=== PATIENT | female | born 2000 | race Caucasian/White ===

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

== ENCOUNTER 2019-07-11 07:31 | Inpatient (IN) ==
[2019-07-11] MEDS ORDERED: OXYTOCIN 30 UNITS/500 ML BAG IV PRN ×2 (08:37→08:41)
[2019-07-11] MEDS ORDERED: ALBUTEROL HFA 8 GM INHALER INH PRN (08:40)
[2019-07-11] MEDS: LACTATED RINGER'S 1,000 ML IV PRN ×4 (08:57→23:51)
[2019-07-11 08:58] LABS: Hematocrit (blood only) 34.7 % (37-47); Hemoglobin 11.3 g/dL (12.0-16.0); Mean Corpuscular Hemoglobin 27.6 pg (25-34); Mean Corpuscular Volume 84.6 fL (80-100); Mean Platelet Volume 10.9 fL (7.4-10.4); Platelet Count 178 K/uL (130-400); RDW Coefficient of Variation 14.7 % (11.5-14.5); RDW Standard Deviation 45.6 fL (36.4-46.3); White Blood Count 12.06 K/uL (4.8-10.8)
[2019-07-11 09:04] LABS: Mean Corpuscular Hgb Conc 32.6 g/dL (32-36)
--- NOTE | 2019-07-11 14:26 | History & Physical Report ---
Date of Service July 11, 2019 Assessment & Plan (1) Proteinuria affecting : (2) Encounter for supervision in primigravida, antepartum: 18yo at 4.5 weeks GA. Elective IOL. 1. Fetus: Cat 1 2. Labor: Will start induction with oxytocin and will AROM when able 3. Vitals: WNL 4. GBS negative History of Present Illness Primary Care Provider: Miley Rodriguez MD 18yo at 40.5 weeks GA. Presents for elective IOL. complicated by Hypothyroidism, and gestational proteinuria. Denies regular ctx, VB, or LOF. Good FM. Blood Type & RH A+ Antibody Screen neg HCT/HGB 38.3/12.7 Platelets 193 Chlamydia Detected A Gonorrhea Not detected Rubella immune RPR Non reactive Urine Culture/Screen no growth HBsAg neg HIV neg MCV 84.7 Low Risk Panorama 8-20 Week OB Labs 01/15/19 Diabetes Screen (1hr) 109 GBS negative. Allergies Allergy/AdvReac Type Severity Reaction Status Date / Time No Known Allergies Allergy Verified 07/11/19 08:33 Home Medications Home Medications Medication Instructions Recorded Confirmed Type albuterol sulfate 90 mcg/actuation See Rx Instructions INH .COMPLEX 11/16/18 07/11/19 History aerosol inhaler PRN epinephrine 0.3 mg/0.3 mL 0.3 mg IM .COMPLEX PRN 11/16/18 07/11/19 History injection, auto-injector prenat.vits,miryam,[id number] 1 tab PO DAILY 11/24/18 07/11/19 History Patient History Social History Preferred Language: Chinese Communication Ability: Effective Visual Impairment: No Limitations Hearing Ability: Normal Beliefs That Will Affect Care: None marital status: Single marital status details: ANTONIA Perez (25) [phone] Current Living Situation: Significant Other Current Living Situation Comment: Lives with parents current occupational status: employed 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 @ [employer] Other Information That Helps Us Care for You: No Feels Safe at Home: Yes Safety Concerns: Feels Safe At This Time Smoking Status: Former smoker Age Started Using Tobacco: 16 ; Age Quit Using Tobacco: 18 ; packs per day: 1 ; Number of Years Since Quit: 0 ; Second Hand Exposure: No ; Hx Alcohol Use: No Hx Substance Use: No Dental Care, Regularly: Yes Physical Activity Frequency: Daily Seatbelt Use: always Sunscreen Use: Yes Physical Exam Gastrointestinal (Abdomen): Inspection/Auscultation: abdomen normal to inspection; abdomen not distended Percussion/Palpation: abdomen soft; abdomen nontender, no guarding and abdomen not rigid Psychiatric: A+Ox3, euthymic affect Genitourinary: normal external appearance Manual OB Exam: + cervical dilation 2 cm, + cervical effacement 70% and + station -2 OB Exam Monitor Tracing: + external FHT monitor used, + external uterine monitor used, + category I and + normal FHT variability; no early decelerations present, no late decelerations present and no variable decelerations Results & Data Vital Signs (Past 12 Hours) Vital Signs Temp Pulse Resp BP 07/11/19 12:17 81 16 109/51 L 07/11/19 11:19 36.9 C 91 H 16 121/71 07/11/19 09:55 83 16 130/60 07/11/19 07:40 108 H 135/77 07/11/19 07:39 36.8 C 108 H 20 135/77 Coding Level of Care Code None Diagnoses Proteinuria affecting O12.10 Encounter for supervision in primigravida, antepartum Z34.00
--- NOTE | 2019-07-11 15:21 | Labor Progress Brief Note ---
Date of Service July 11, 2019 Subjective Reason For Note: Routine Evaluation Assessment & Plan (1) Proteinuria affecting : (2) Encounter for supervision in primigravida, antepartum: 18yo at 4.5 weeks GA. Elective IOL. 1. Fetus: Cat 1 2. Labor: Oxytocin, s/p AROM for clear 3. Vitals: WNL 4. GBS negative Physical Exam Genitourinary: Manual OB Exam: + cervical dilation 2 cm, + cervical effacement 70%, + station -2 and + amniotic fluid clear OB Exam Monitor Tracing: + external FHT monitor used, + external uterine monitor used, + category I and + normal FHT variability; no early decelerations present, no late decelerations present and no variable decelerations Results & Data Vital Signs (Past 12 Hours) Vital Signs Temp Pulse Resp BP 07/11/19 14:56 36.8 C 85 20 129/68 07/11/19 14:01 86 16 126/70 07/11/19 12:17 81 16 109/51 L 07/11/19 11:19 36.9 C 91 H 16 121/71 07/11/19 09:55 83 16 130/60 07/11/19 07:40 108 H 135/77 07/11/19 07:39 36.8 C 108 H 20 135/77 Coding Level of Care Code None Diagnoses Proteinuria affecting O12.10 Encounter for supervision in primigravida, antepartum Z34.00
[2019-07-11] MEDS ORDERED: BUTORPHANOL TARTRATE 1 MG/ML VIAL IV PRN (16:51)
[2019-07-11] MEDS ORDERED: BUTORPHANOL TARTRATE 1 MG/ML VIAL ONE (16:55)
[2019-07-11] MEDS ORDERED: ePHEDrine sulfate 50 MG/ML AMP ONE (17:45)
[2019-07-11] MEDS ORDERED: BUPIVACAINE 0.25% 30 ML VIAL ONE (17:45)
[2019-07-11] MEDS ORDERED: fentaNYL citrate 100 MCG/2 ML VIAL ONE (17:46)
[2019-07-11] MEDS ORDERED: fentaNYL 2MCG/ML ROPIV 1.25MG/ML 100 ML BAG EPI ONE (17:46)
--- NOTE | 2019-07-11 18:01 | Anesthesiology Consultation ---
Date of Service July 11, 2019 Assessment & Plan Chart Review Chart Review: Acceptable Risk for Labor Epidural Consults Requested none ASA ASA2 Proposed Anesthesia Anesthesia Type: Labor Epidural Risk / Benefits Reviewed With: PT / POA / Parent / Guardian, Accepts Plan and Informed Consent Obtained History Height/Weight Height: 5 ft 4 in Weight: 94.801 kg Allergies Allergy/AdvReac Type Severity Reaction Status Date / Time No Known Allergies Allergy Verified 07/11/19 08:33 Medications Home Medications Medication Instructions Recorded Confirmed Last Taken albuterol sulfate 90 mcg/actuation See Rx Instructions INH .COMPLEX 11/16/18 07/11/19 Unknown aerosol inhaler PRN epinephrine 0.3 mg/0.3 mL 0.3 mg IM .COMPLEX PRN 11/16/18 07/11/19 Unknown injection, auto-injector prenat.vits,miryam,[id number] 1 tab PO DAILY 11/24/18 07/11/19 07/11/19 06:00 Active Medications Generic Name Dose Route Start Last Admin Trade Name Freq PRN Reason Stop Dose Admin Lactated Ringer's 1,000 mls @ 125 mls/hr 07/11/19 08:37 07/11/19 17:57 Lr IV 07/13/19 08:36 999 mls/hr .Q8H PRN Infusion L&D Protocol Protocol Oxytocin 30 units in 500 mls @ 9 mls/hr 07/11/19 08:41 07/11/19 17:13 Pitocin IV 07/13/19 08:40 0.54 units/hr .Q24H PRN 9 mls/hr Labor Induction/Augmentation Titration Protocol 0.54 UNITS/HR NPO Date Last Intake of Fluids: 07/11/19 Time Last Intake of Fluids: 17:00 Date Last Intake of Solids: 07/11/19 Time Last Intake of Solids: 06:00 Past Medical History Medical History screening for malformation using ultrasonics Fall (on) (from) other stairs and steps, initial encounter Graves disease (Resolved) Intrinsic asthma (Chronic) Migraine No leakage of amniotic fluid into vagina Otitis media (Inactive) with 32 completed weeks gestation Varicella vaccine Vitiligo (Chronic) Exercise / Class Metabolic Activity II 4-5 Yardwork/Stairs/Walk up hill Past Family History Family History Father Allergic rhinitis Mother Allergic rhinitis Asthma FHx: kidney cancer Hypertension Multiple gestation Premature labor Grandmother (Paternal) Breast cancer Grandmother Breast cancer Sister Diabetes Hypercholesteremia Other ADHD (attention deficit hyperactivity disorder) Denies family history of Ovarian cancer Prostate cancer Myocardial infarction Colorectal cancer Past Surgical History Surgical History S/P tonsillectomy and adenoidectomy S/P wisdom tooth extraction Past Anesthesia History No Hx of Anesthesia Complications and No Family Hx of Anesthesia Complications History of PONV No Hx of PONV and No Hx of Motion Sickness Social History Smoking Status: Former smoker Hx Alcohol Use: No Hx Substance Use: No substance use type: does not use Physical Exam Vital Signs Last Vital Signs Temp 36.8 C 07/11/19 17:02 Pulse 89 07/11/19 17:56 Resp 20 07/11/19 17:02 BP 120/66 07/11/19 17:03 Pulse Ox 100 07/11/19 17:56 ENMT Mouth: no TMJ abnormality Thyromental Distance: > or= 3.5 Finger Breadths Mallampati Class: II Neck normal visual inspection and trachea midline; neck extension not limited Respiratory normal respiratory effort Auscultation: lungs clear to auscultation bilaterally Cardiovascular Rate/Rhythm: regular rate and regular rhythm Heart Sounds: no murmur Musculoskeletal Spine: normal cervical ROM Extremities: full ROM of extremities Neurologic moves all extremities Psychiatric Orientation: alert and oriented x 3 Testing Laboratory Results 07/11/19 08:48
[2019-07-11] MEDS ORDERED: ONDANSETRON INJ 2 MG/ML 2 ML VIAL IV PRN (18:19)
[2019-07-11] MEDS ORDERED: PROMETHAZINE HCL 25 MG in SODIUM CHLORIDE 0.9% 50 ML IV PRN (18:19)
[2019-07-11] MEDS ORDERED: fentaNYL 2MCG/ML ROPIV 1.25MG/ML 100 ML BAG EPI PRN (18:19)
[2019-07-11] MEDS ORDERED: NALOXONE HCL 0.4 MG/1 ML VIAL/CARP IV PRN (18:19)
[2019-07-11] MEDS ORDERED: NALBUPHINE HCL INJ 10 MG/ML AMP IV PRN (18:19)
[2019-07-11] MEDS ORDERED: METOCLOPRAMIDE HCL 20 MG in SODIUM CHLORIDE 0.9% 50 ML IV PRN (18:19)
[2019-07-11] MEDS ORDERED: DiphenhydrAMINE HCL 50 MG/ML VIAL IV PRN (18:19)
[2019-07-11] MEDS ORDERED: NALOXONE HCL 1 MG in SODIUM CHLORIDE 0.9% 1000ML 1,000 ML IV PRN (18:19)
[2019-07-11] MEDS ORDERED: ePHEDrine sulfate 50 MG/ML AMP IV PRN (18:19)
--- NOTE | 2019-07-11 20:41 | Labor Progress Brief Note ---
Date of Service July 11, 2019 Subjective Reason For Note: Routine Evaluation Assessment & Plan (1) Proteinuria affecting : (2) Encounter for supervision in primigravida, antepartum: 18yo at 4.5 weeks GA. Elective IOL. 1. Fetus: Cat 1 2. Labor: Oxytocin, s/p AROM for clear, IUPC placed 3. Vitals: WNL 4. GBS negative Physical Exam Genitourinary: OB Exam Abdomen: + vertex Manual OB Exam: + cervical dilation (2-3), + cervical effacement 80%, + station -2 and + amniotic fluid clear OB Exam Monitor Tracing: + external FHT monitor used, + external uterine monitor used, + category I and + normal FHT variability; no early decelerations present, no late decelerations present and no variable decelerations Results & Data Vital Signs (Past 12 Hours) Vital Signs Temp Pulse Resp BP Pulse Ox 07/11/19 20:36 95 H 97 07/11/19 20:31 92 H 128/68 96 07/11/19 20:26 86 97 07/11/19 20:21 90 96 07/11/19 20:16 89 118/56 L 97 07/11/19 20:11 97 H 96 07/11/19 20:06 88 98 07/11/19 20:01 93 H 125/60 97 07/11/19 19:56 93 H 97 07/11/19 19:51 91 H 96 07/11/19 19:46 91 H 130/56 L 99 07/11/19 19:41 95 H 99 07/11/19 19:36 85 97 07/11/19 19:31 101 H 135/63 98 07/11/19 19:26 95 H 97 07/11/19 19:21 90 97 07/11/19 19:16 89 127/71 97 07/11/19 19:11 83 96 07/11/19 19:06 91 H 99 07/11/19 19:05 36.9 C 18 07/11/19 19:02 91 H 119/84 07/11/19 19:01 85 98 07/11/19 18:56 94 H 97 07/11/19 18:51 92 H 98 07/11/19 18:46 89 98 07/11/19 18:44 94 H 132/85 07/11/19 18:41 106 H 99 07/11/19 18:39 96 H 141/66 H 07/11/19 18:36 89 100 07/11/19 18:34 89 133/68 07/11/19 18:31 88 98 07/11/19 18:28 80 135/70 07/11/19 18:26 78 133/72 100 07/11/19 18:24 74 126/72 07/11/19 18:22 95 H 114/58 L 07/11/19 18:21 81 98 07/11/19 18:20 99 H 111/55 L 07/11/19 18:18 83 108/55 L 07/11/19 18:17 91 H 103/56 L 07/11/19 18:16 93 H 97 07/11/19 18:11 105 H 98 07/11/19 18:06 106 H 100 07/11/19 18:04 102 H 94 07/11/19 18:01 94 H 98 07/11/19 17:56 89 100 07/11/19 17:03 88 120/66 07/11/19 17:02 36.8 C 20 07/11/19 15:57 82 117/75 07/11/19 14:56 36.8 C 85 20 129/68 07/11/19 14:01 86 16 126/70 07/11/19 12:17 81 16 109/51 L 07/11/19 11:19 36.9 C 91 H 16 121/71 07/11/19 09:55 83 16 130/60 Coding Level of Care Code None Diagnoses Proteinuria affecting O12.10 Encounter for supervision in primigravida, antepartum Z34.00
--- NOTE | 2019-07-11 22:18 | Labor Progress Brief Note ---
Date of Service July 11, 2019 Subjective Oxytocin discontinued for prolonged deceleration and several late after i ncreasing oxytocin. IUPC in place and initially having adequate contractions which became inadequate prior to increasing oxytocin. Assessment & Plan (1) Proteinuria affecting : (2) Encounter for supervision in primigravida, antepartum: 18yo at 4.5 weeks GA. Elective IOL. 1. Fetus: Cat 1 2. Labor: Oxytocin, s/p AROM for clear, IUPC in place 3. Vitals: WNL 4. GBS negative Physical Exam Genitourinary: Manual OB Exam: + cervical dilation (2.5), + cervical effacement 80% and + station -2 OB Exam Monitor Tracing: + external FHT monitor used, + intra-uterine pressure catheter used and + category II Results & Data Vital Signs (Past 12 Hours) Vital Signs Temp Pulse Resp BP Pulse Ox 07/11/19 22:11 81 97 07/11/19 22:06 77 97 07/11/19 22:01 96 H 117/59 L 97 07/11/19 21:56 86 97 07/11/19 21:51 84 98 07/11/19 21:46 88 127/58 L 96 07/11/19 21:41 103 H 99 07/11/19 21:37 37.0 C 07/11/19 21:36 96 H 96 07/11/19 21:31 97 H 99 07/11/19 21:30 92 H 116/59 L 07/11/19 21:26 79 96 07/11/19 21:21 88 96 07/11/19 21:17 85 111/59 L 07/11/19 21:16 86 96 07/11/19 21:11 82 97 07/11/19 21:06 96 H 96 07/11/19 21:01 95 H 127/60 96 07/11/19 20:56 91 H 96 07/11/19 20:51 94 H 96 07/11/19 20:46 78 133/60 98 07/11/19 20:41 86 96 07/11/19 20:36 95 H 97 07/11/19 20:31 92 H 128/68 96 07/11/19 20:26 86 97 07/11/19 20:21 90 96 07/11/19 20:16 89 118/56 L 97 07/11/19 20:11 97 H 96 07/11/19 20:06 88 98 07/11/19 20:01 93 H 125/60 97 07/11/19 19:56 93 H 97 07/11/19 19:51 91 H 96 07/11/19 19:46 91 H 130/56 L 99 07/11/19 19:41 95 H 99 07/11/19 19:36 85 97 07/11/19 19:31 101 H 135/63 98 07/11/19 19:26 95 H 97 07/11/19 19:21 90 97 07/11/19 19:16 89 127/71 97 07/11/19 19:11 83 96 07/11/19 19:06 91 H 99 07/11/19 19:05 36.9 C 18 07/11/19 19:02 91 H 119/84 07/11/19 19:01 85 98 07/11/19 18:56 94 H 97 07/11/19 18:51 92 H 98 07/11/19 18:46 89 98 07/11/19 18:44 94 H 132/85 07/11/19 18:41 106 H 99 07/11/19 18:39 96 H 141/66 H 07/11/19 18:36 89 100 07/11/19 18:34 89 133/68 07/11/19 18:31 88 98 07/11/19 18:28 80 135/70 07/11/19 18:26 78 133/72 100 07/11/19 18:24 74 126/72 07/11/19 18:22 95 H 114/58 L 07/11/19 18:21 81 98 07/11/19 18:20 99 H 111/55 L 07/11/19 18:18 83 108/55 L 07/11/19 18:17 91 H 103/56 L 07/11/19 18:16 93 H 97 07/11/19 18:11 105 H 98 07/11/19 18:06 106 H 100 07/11/19 18:04 102 H 94 07/11/19 18:01 94 H 98 07/11/19 17:56 89 100 07/11/19 17:03 88 120/66 07/11/19 17:02 36.8 C 20 07/11/19 15:57 82 117/75 07/11/19 14:56 36.8 C 85 20 129/68 07/11/19 14:01 86 16 126/70 07/11/19 12:17 81 16 109/51 L 07/11/19 11:19 36.9 C 91 H 16 121/71 Coding Level of Care Code None Diagnoses Proteinuria affecting O12.10 Encounter for supervision in primigravida, antepartum Z34.00
[2019-07-12] MEDS: ACETAMINOPHEN 500 MG TAB PO PRN ×3 (00:03→18:32)
--- NOTE | 2019-07-12 00:10 | Labor Progress Brief Note ---
Date of Service July 12, 2019 Subjective Reason For Note: Routine Evaluation Assessment & Plan (1) Proteinuria affecting : (2) Encounter for supervision in primigravida, antepartum: 18yo at 4.5 weeks GA. Elective IOL. 1. Fetus: Cat 1 2. Labor: Progressing, Oxytocin, s/p AROM for clear, IUPC in place 3. Vitals: WNL 4. GBS negative Physical Exam Genitourinary: OB Exam Abdomen: + vertex Manual OB Exam: + cervical dilation 7 cm, + cervical effacement 90%, + station -1 and + amniotic fluid clear OB Exam Monitor Tracing: + external FHT monitor used, + external uterine monitor used, + category I and + normal FHT variability; no early decelerations present, no late decelerations present and no variable decelerations Results & Data Vital Signs (Past 12 Hours) Vital Signs Temp Pulse Resp BP Pulse Ox 07/12/19 00:06 102 H 98 07/12/19 00:01 96 H 99 07/12/19 00:00 105 H 130/60 07/11/19 23:56 109 H 100 07/11/19 23:51 101 H 99 07/11/19 23:47 94 H 91 07/11/19 23:46 104 H 100 07/11/19 23:45 97 H 134/68 07/11/19 23:41 105 H 100 07/11/19 23:36 103 H 100 07/11/19 23:31 102 H 151/80 H 99 07/11/19 23:28 100 H 89 L 07/11/19 23:26 102 H 99 07/11/19 23:21 95 H 99 07/11/19 23:16 90 118/55 L 98 07/11/19 23:11 92 H 98 07/11/19 23:06 89 97 07/11/19 23:01 78 112/59 L 98 07/11/19 22:56 91 H 98 07/11/19 22:51 91 H 96 07/11/19 22:46 89 119/56 L 97 07/11/19 22:41 88 96 07/11/19 22:36 91 H 96 07/11/19 22:31 83 117/58 L 97 07/11/19 22:26 89 96 07/11/19 22:21 85 96 07/11/19 22:16 79 116/60 96 07/11/19 22:11 81 97 07/11/19 22:06 77 97 07/11/19 22:01 96 H 117/59 L 97 07/11/19 21:56 86 97 07/11/19 21:51 84 98 07/11/19 21:46 88 127/58 L 96 07/11/19 21:41 103 H 99 07/11/19 21:37 37.0 C 07/11/19 21:36 96 H 96 07/11/19 21:31 97 H 99 07/11/19 21:30 92 H 116/59 L 07/11/19 21:26 79 96 07/11/19 21:21 88 96 07/11/19 21:17 85 111/59 L 07/11/19 21:16 86 96 07/11/19 21:11 82 97 07/11/19 21:06 96 H 96 07/11/19 21:01 95 H 127/60 96 07/11/19 20:56 91 H 96 07/11/19 20:51 94 H 96 07/11/19 20:46 78 133/60 98 07/11/19 20:41 86 96 07/11/19 20:36 95 H 97 07/11/19 20:31 92 H 128/68 96 07/11/19 20:26 86 97 07/11/19 20:21 90 96 07/11/19 20:16 89 118/56 L 97 07/11/19 20:11 97 H 96 07/11/19 20:06 88 98 07/11/19 20:01 93 H 125/60 97 07/11/19 19:56 93 H 97 07/11/19 19:51 91 H 96 07/11/19 19:46 91 H 130/56 L 99 07/11/19 19:41 95 H 99 07/11/19 19:36 85 97 07/11/19 19:31 101 H 135/63 98 07/11/19 19:26 95 H 97 07/11/19 19:21 90 97 07/11/19 19:16 89 127/71 97 07/11/19 19:11 83 96 07/11/19 19:06 91 H 99 07/11/19 19:05 36.9 C 18 07/11/19 19:02 91 H 119/84 07/11/19 19:01 85 98 07/11/19 18:56 94 H 97 07/11/19 18:51 92 H 98 07/11/19 18:46 89 98 07/11/19 18:44 94 H 132/85 07/11/19 18:41 106 H 99 07/11/19 18:39 96 H 141/66 H 07/11/19 18:36 89 100 07/11/19 18:34 89 133/68 07/11/19 18:31 88 98 07/11/19 18:28 80 135/70 07/11/19 18:26 78 133/72 100 07/11/19 18:24 74 126/72 07/11/19 18:22 95 H 114/58 L 07/11/19 18:21 81 98 07/11/19 18:20 99 H 111/55 L 07/11/19 18:18 83 108/55 L 07/11/19 18:17 91 H 103/56 L 07/11/19 18:16 93 H 97 07/11/19 18:11 105 H 98 07/11/19 18:06 106 H 100 07/11/19 18:04 102 H 94 07/11/19 18:01 94 H 98 07/11/19 17:56 89 100 07/11/19 17:03 88 120/66 07/11/19 17:02 36.8 C 20 07/11/19 15:57 82 117/75 07/11/19 14:56 36.8 C 85 20 129/68 07/11/19 14:01 86 16 126/70 07/11/19 12:17 81 16 109/51 L Coding Level of Care Code None Diagnoses Proteinuria affecting O12.10 Encounter for supervision in primigravida, antepartum Z34.00
[2019-07-12] MEDS ORDERED: HYDROCORTISONE ACETATE 25 MG SUPP PR PRN (06:22)
[2019-07-12] MEDS ORDERED: SUPERCREAM 0.870% 15 GM JAR EXT PRN (06:22)
[2019-07-12] MEDS ORDERED: ACETAMINOPHEN 325 MG TAB PO PRN (06:22)
[2019-07-12] MEDS ORDERED: bisacodyL 10 MG SUPP PR PRN (06:22)
[2019-07-12] MEDS ORDERED: DIPHTHERIA/TETANUS/PERTUSSIS 0.5 ML SYR/VIAL IM ONE (06:22)
[2019-07-12] MEDS ORDERED: OXYTOCIN 30 UNITS/500 ML BAG IV PRN (06:22)
--- NOTE | 2019-07-12 07:23 | Operative Report (OR) ---
DATE OF OPERATION: 07/12/2019 PROCEDURE: Vacuum assisted vaginal delivery and first degree perineal and bilateral periurethral laceration repairs. SURGEON: Yousuf Santana MD PREOPERATIVE DIAGNOSES: 1. Single intrauterine at term. 2. Gestational proteinuria. 3. Prolonged second stage of labor. 4. Maternal fatigue. POSTOPERATIVE DIAGNOSES: 1. Single intrauterine at term. 2. Gestational proteinuria. 3. Prolonged second stage of labor. 4. Maternal fatigue. 5. Status post delivery. ESTIMATED BLOOD LOSS: 300 mL. DRAINS: Straight catheterized prior to vacuum assist as well as straight catheterization following completion of the delivery. URINE OUTPUT: 500 mL total. COMPLICATIONS: None. FINDINGS: Viable female infant, weight pending, Apgars of 8 and 9 on 1 and 5 minutes respectively. INDICATIONS: The patient is a 18-year-old G1, P0 admitted at 40 weeks 5 days gestational age for induction of labor for elective induction. At time of admission, the patient was found to be 1.5 cm dilated. She was started on oxytocin for regular protocol. She later underwent artificial rupture of membranes, received an epidural for anesthesia. The patient progressed in labor slowly but did achieve complete dilation at +1 station. At that point, the patient was feeling a strong urge to push and pushed to +3 station over approximately 3 hours. At that point, the patient was starting to feel emotional fatigue as well as the prolonged second stage and a vacuum assisted delivery was offered to the patient. We discussed the risks of the vacuum assisted delivery. PROCEDURE: After the patient progressed to 10 cm dilated, 100% effaced positive, 3 station and 3 hours of pushing, the patient was offered a vacuum assist as noted above. The vacuum was placed 2 cm anterior to the posterior fontanelle, that was insufflated within the green zone. The pulse occurred over 3 contractions and care was taken to not have excessive tension by monitoring on the tension indicating bar. The head of the was noted to be and the vacuum was removed and the baby delivered over an additional push. Head of did come out in MARCOS position, but slightly asynclitic. Body and shoulders quickly followed and the delivered to maternal abdomen and was noted to be vigorous soon after delivery, 1 minute delayed cord clamping was initiated for the cord was double clamped and cut. Cord blood and cord segment were obtained. Attention was then turned to delivery, the placenta which was delivered intact, 3-vessel cord, gentle cord traction. On inspection of the perineum, vagina and cervix, there was noted to be a first degree perineal laceration and bilateral periurethral laceration. The perineal laceration was repaired with 3-0 Vicryl continuous running lock suture. The bilateral periurethral were reapproximated with interrupted 3-0 Vicryl. Needle, sponge and instruments counts correct at the completion of the case, both mother and were stable in the post-delivery period. I attest to the content of the Intraoperative Record and any orders documented therein. Any exception s are noted below.
[2019-07-12] MEDS: IBUPROFEN 600 MG TAB PO PRN ×3 (08:53→20:02)
--- NOTE | 2019-07-12 09:25 | Anesthesia Procedure Note ---
Date of Service July 12, 2019 Anesthesia Post Epidural Note Vital Signs Vital Signs: Temp Pulse Resp BP Pulse Ox 36.7 C 88 20 128/58 L 95 07/12/19 05:30 07/12/19 08:45 07/12/19 07:15 07/12/19 08:45 07/12/19 05:51 Pain Intensity Bilateral Abdomen: Pain Intensity: 2 Notes Mental Status: alert / awake / arousable and participated in evaluation Nausea / Vomiting: adequately controlled Pain: adequately controlled Airway Patency, RR, SpO2: stable & adequate BP & HR: stable & adequate Hydration State: stable & adequate Neuraxial Anesthesia: was administered and sensory block is resolving Anesthetic Complications: no major complications apparent and Pt Satisfied with anesthetic care Epidural: Removed without complications and With tip intact
[2019-07-12] MEDS: BENZOCAINE 20% AER SPR 82.5 GM CAN EXT PRN (10:24)
[2019-07-12] MEDS: PRENATAL VITAMIN 1 TAB PO SCH (10:24)
[2019-07-12] MEDS: DOCUSATE SODIUM 100 MG CAP PO SCH ×2 (10:24→20:02)
[2019-07-13 06:11] LABS: Hemoglobin 9.5 g/dL (12.0-16.0)
--- NOTE | 2019-07-13 06:48 | Obstetrical Progress Note ---
Date of Service July 13, 2019 Assessment & Plan (1) Encounter for supervision in primigravida, antepartum: - doing well - PE unremarkable - doing well Subjective Ambulation: ambulating normally Voiding: no voiding problems Had an episode of SOB, resolved Physical Exam Constitutional WD/WN, vitals as above Respiratory normal respiratory effort, lungs clear to auscultation Gastrointestinal (Abdomen) Fundus firm below umbilicus Musculoskeletal No deep calf tenderness Results & Data Vital Signs (Past 12 Hours) Vital Signs Temp Pulse Resp BP Pulse Ox 07/13/19 04:45 98.6 F 82 18 119/72 07/13/19 00:30 97.9 F 90 18 120/67 98 07/12/19 19:08 98.2 F 99 H 20 112/71 97
[2019-07-13] MEDS: PRENATAL VITAMIN 1 TAB PO SCH (08:43)
[2019-07-13] MEDS: DOCUSATE SODIUM 100 MG CAP PO SCH ×2 (08:43→20:21)
[2019-07-13] MEDS: IBUPROFEN 600 MG TAB PO PRN ×3 (08:44→23:29)
[2019-07-13] MEDS ORDERED: bisacodyL 5 MG TABEC PO SCH (20:00)
[2019-07-14] MEDS: IBUPROFEN 600 MG TAB PO PRN ×2 (03:44→08:01)
--- NOTE | 2019-07-14 06:32 | Obstetrical Progress Note ---
Date of Service July 14, 2019 Assessment & Plan (1) Vaginal delivery: Doing well. Plan d/c today. Instructions given. f/u 6 weeks pp. Day #:: 2 Subjective Ambulation: ambulating normally Voiding: no voiding problems Passing Gas:: Yes Diet Tolerance:: regular diet Lochia:: Small Feeding Type:: bottle feeding Physical Exam Constitutional WD/WN, vitals as above Cardiovascular Extremities: + edema (trace); no calf tenderness Gastrointestinal (Abdomen) soft, nt, nd ff/nt at u Results & Data Vital Signs (Past 12 Hours) Vital Signs Temp Pulse Resp BP Pulse Ox 07/13/19 23:20 37.1 C 85 16 107/63 99
[2019-07-14] MEDS: PRENATAL VITAMIN 1 TAB PO SCH (08:00)
[2019-07-14] MEDS: DOCUSATE SODIUM 100 MG CAP PO SCH (08:00)
[2019-07-14] MEDS: BENZOCAINE 20% AER SPR 82.5 GM CAN EXT PRN (08:01)
--- NOTE | 2019-07-16 16:05 | Discharge Summary (DS) ---
Laverne is a 18-year-old admitted at 40 weeks 5 days gestational age for elective induction of labor. The patient underwent a vacuum-assisted vaginal delivery with first degree perineal laceration repair. Please see operative report for additional details. The patient remained in the care until day #2. The patient had no complications during her delivery or . The patient was given written and verbal discharge instructions with planned follow up at 6 weeks or earlier as needed.
== END 2019-07-14 11:09 | disposition home or self-care (01) | DRG 807 ==
LOC: 4S1 07:31 → 4N 07-12 10:31

== ENCOUNTER 2021-05-20 07:06 | Inpatient (IN) ==
--- NOTE | 2021-05-19 15:21 | Anesthesiology Consultation ---
Date of Service May 19, 2021 Assessment & Plan (1) Encounter for pre-operative examination: - COVID screening: Per property assessment monitor on 05/19/2021: Travel screen negative, no known COVID-19 positive contacts or current COVID-19 related symptoms in past 2 weeks. Pre-op COVID testing 05/19/2021 negative. Chart Review Chart Review: journal entry audit clerk initiated History Surgery Operation Date: 05/20/21 09:05 Proposed Procedures p Section in LD - Yajaira Cortes MD, FACOG Height/Weight Height: 5 ft 2 in Weight: 105.687 kg Allergies Allergy/AdvReac Type Severity Reaction Status Date / Time nickel Allergy Mild redness/swelling Verified 05/19/21 14:31 with nickel jewelry Medications Home Medications Medication Instructions Recorded Confirmed Last Taken ferrous sulfate 325 mg (65 mg 325 mg PO HS 03/09/21 05/19/21 Unknown iron) tablet sertraline 50 mg tablet 50 mg PO DAILY #30 tab 04/13/21 05/19/21 Unknown lansoprazole 15 mg capsule,delayed 15 mg PO HS 05/19/21 05/19/21 Unknown release vit no.133-ferrous 1 tab PO HS 05/19/21 05/19/21 Unknown fumarate 28 mg-folic acid 800 mcg tablet () Past Medical History Medical History ADD (attention deficit disorder) no meds Allergic conjunctivitis Anti-TPO antibodies present Anxiety and depression will be starting zoloft after Cervical lymphadenopathy Chronic lymphocytic thyroiditis currently no meds Graves disease currently no meds PID (acute pelvic inflammatory disease) Splenomegaly (08/20/12) Past Family History Family History Father Allergic rhinitis Mother Multiple gestation Premature labor FHx: kidney cancer Allergic rhinitis Hypertension Asthma Grandmother (Paternal) Breast cancer Grandmother Breast cancer Sister Diabetes Hypercholesteremia Other ADHD (attention deficit hyperactivity disorder) No family history of adverse response to anesthesia Denies family history of Ovarian cancer Prostate cancer Myocardial infarction Colorectal cancer Past Surgical History Surgical History S/P tonsillectomy and adenoidectomy S/P wisdom tooth extraction Social History Smoking Status: Former smoker Do You Dip or Chew Tobacco: No Smoking End Date: quit over 1 yr ago Hx Alcohol Use: No Hx Substance Use: No substance use type: does not use
[~2021-05-20 07:06] MED LIST changes: -BCPILLS PO; +CITRIC ACID/SODIUM CITRATE 15 ML UDC PO SCH; +LACTATED RINGER'S 1,000 ML IV SCH; -METH-589 PO; +ceFAZolin 3,000 MG in DEXTROSE 5% 50 ML IV SCH
[2021-05-20] MEDS ORDERED: LACTATED RINGER'S 1,000 ML IV PRN (07:32)
[2021-05-20 08:43] LABS: Basophils # (auto) 0.01 K/uL (0-0.2); Basophils % (auto) 0.1 %; Eosinophils # (auto) 0.11 K/uL (0-0.5); Hemoglobin 9.7 g/dL (12.0-16.0); Immature Granulocytes # (auto) 0.03 K/uL (0.00-0.02); Immature Granulocytes % (auto) 0.3 %; Lymphocytes # (auto) 1.63 K/uL (1.2-3.4); Lymphocytes % (auto) 14.9 %; Mean Corpuscular Hemoglobin 23.5 pg (25-34); Mean Corpuscular Hgb Conc 31.3 g/dL (32-36); Mean Corpuscular Volume 75.1 fL (80-100); Mean Platelet Volume 11.1 fL (7.4-10.4); Monocytes # (auto) 0.65 K/uL (0.11-0.59); Monocytes % (auto) 5.9 %; Neutrophils # (auto) 8.52 K/uL (1.4-6.5); Neutrophils % (auto) 77.8 %; Platelet Count 188 K/uL (130-400); RDW Coefficient of Variation 16.5 % (11.5-14.5); RDW Standard Deviation 44.7 fL (36.4-46.3); Red Blood Count 4.13 M/uL (4.2-5.4); White Blood Count 10.95 K/uL (4.8-10.8)
[2021-05-20 09:10] LABS: Appearance Urine Turbid (Clear); Bacteria Urine Automated 2+ (Negative); Bilirubin Urine Negative (Negative); Blood Urine Negative (Negative); Color Urine Yellow; Epithelial Cell Urine Auto >30 /lpf (0-5); Glucose Urine UA Negative (Negative); Ketones Urine Negative (Negative); Leukocyte Esterase Urine 1+ (Negative); Nitrite Urine Negative (Negative); Protein Urine Negative (Negative); Specific Gravity Urine 1.018 (1.000-1.030); Urobilinogen Urine Negative (Negative)
--- NOTE | 2021-05-20 09:11 | History & Physical Bridge Note ---
Date of Service May 20, 2021 History & Physical Bridge Note I have examined the patient, reviewed the History & Physical and in the interval since the performance of the History & Physical I have noted the following changes of clinical significance: no changes noted Again discussed options and offer of induction today. Declines. Will proceed with c/s
[2021-05-20] MEDS ORDERED: diphenhydrAMINE 50 MG/ML VIAL IV PRN (09:12)
[2021-05-20] MEDS ORDERED: NALOXONE HCL 1 MG in SODIUM CHLORIDE 0.9% 1000ML 1,000 ML IV PRN (09:12)
[2021-05-20] MEDS ORDERED: NALBUPHINE HCL INJ 10 MG/ML AMP IV PRN (09:12)
[2021-05-20] MEDS ORDERED: NALOXONE HCL 0.4 MG/1 ML VIAL/CARP IV PRN (09:12)
[2021-05-20] MEDS ORDERED: MoRPHine SULFATE PF 1 MG/ML 10 ML AMP/VIAL INT SPINAL ONE (09:12)
[2021-05-20] MEDS ORDERED: LACTATED RINGER'S 500 ML IV PRN (09:12)
[2021-05-20] MEDS ORDERED: HYDROmorphone INJ 0.5 MG/0.5 ML SYR IV PRN (09:12)
[2021-05-20] MEDS ORDERED: ePHEDrine sulfate 50 MG/ML AMP IV PRN (09:12)
[2021-05-20] MEDS ORDERED: ONDANSETRON INJ 2 MG/ML 2 ML VIAL IV PRN (09:12)
[2021-05-20] MEDS ORDERED: NALOXONE HCL 0.08 MG in SYRINGE 1.8 ML IV PRN (09:12)
[2021-05-20] MEDS ORDERED: NO NARCOTICS OR SEDATIVES SCH (09:15)
[2021-05-20] MEDS ORDERED: DC INTRASPINAL MORPHINE SCH (09:15)
[2021-05-20] MEDS ORDERED: SODIUM CHLORIDE 0.9% 1000ML 1,000 ML IV SCH (09:15)
[2021-05-20 09:29] LABS: RBC Urine Automated 0-4 /hpf (0-4)
[2021-05-20] MEDS ORDERED: MoRPHine SULFATE PF 1 MG/ML 10 ML AMP/VIAL ONE (09:40)
[2021-05-20] MEDS ORDERED: fentaNYL citrate 100 MCG/2 ML VIAL ONE (09:40)
[2021-05-20] MEDS ORDERED: OXYTOCIN 10 UNITS/ML 10ML VIAL ONE ×2 (09:44→10:32)
[2021-05-20] MEDS ORDERED: PHENYLEPHRINE HCL 10 MG/ML VIAL ONE (09:45)
[2021-05-20] MEDS ORDERED: ONDANSETRON INJ 2 MG/ML 2 ML VIAL ONE (10:32)
[2021-05-20] MEDS ORDERED: MAGNESIUM HYDROXIDE SUSP 30 ML UDC PO PRN (10:59)
[2021-05-20] MEDS ORDERED: HYDROCORTISONE ACETATE 25 MG SUPP PR PRN (10:59)
[2021-05-20] MEDS ORDERED: BENZOCAINE 20% AER SPR 82.5 GM CAN EXT PRN (10:59)
[2021-05-20] MEDS ORDERED: DIPHTHERIA/TETANUS/PERTUSSIS 0.5 ML SYR/VIAL IM ONE (10:59)
[2021-05-20] MEDS ORDERED: SENNA 8.6 MG TAB PO PRN (10:59)
[2021-05-20] MEDS ORDERED: OXYTOCIN 10 UNITS in LACTATED RINGER'S 1,000 ML IV SCH (11:00)
[2021-05-20] MEDS ORDERED: LACTATED RINGER'S 1,000 ML IV SCH (11:00)
--- NOTE | 2021-05-20 11:08 | History & Physical Report ---
Date of Service May 20, 2021 Assessment & Plan (1) Morbid obesity: (2) 39 weeks gestation of : (3) Large for gestational age fetus affecting management of mother, antepartum: Plan: LGA infant with a 4 hour push and vacuum with last delivery. Discussed all options and she has decided on c/s. Consent reviewed and signed yesterday with Dr. Nixon. All questions answered. Offered induction again this am and declines. Plan to proceed. Admission and Anticipated Discharge Date Admission Date: May 20, 2021 History of Present Illness Chief Complaint: lga Primary Care Provider: Anne-Marie Cuevas MD Patient is a 20yowf with iup at 39 4/7 weeks who presents to labor and delivery today for elective c/s. Patient was in the office yesterday. She had been measuring big. US showed a HC off the chart, AC 96%, efw 95%--4228gm, 9#5oz +/- 22oz. Patient has a hx of a previous vaginal delivery of an 8#4oz baby after a four hour push and vacuum assist. We discussed this in detail the situation. LGA with HC off the chart. Discussed that we should either attempt induction tomorrow or consider primary c/s. Discussed could have ftp/d given the large head, discussed possiblity of shoulder dystocia, discussed that last time it took her 4 hours to push out a 9 # baby. Discussed that we would not attempt any vacuum. Discussed would have to push out herself. Discussed what the implications of a shoulder dystocia might entail. Discussed the other option would be primary c/s. Discussed the risks associated with c/s--bleeding, transfusion, infection, poor wound healing, implications for her next , injury to other organs requiring further surgery. After long discussion and answering questions, she has decided to proceed with primary c/s. and Delivery Plans LGA infant Hypothyroidism *TFT's Q4wks. Chlamydia + *DEB 8wks after treatement - neg (SLN) *retest @ 36wks. - neg (SLN) Obesity (BMI 40 and higher @ beginning of ) *Growth US @ 32wks - EFW 97%, AC 98% > f/u 36 wks *Weekly NSTs @ 34wks OB Labs: Blood Type A Positive 10/15/20 Antibody Screen NEGATIVE 10/15/20 Hemoglobin 10.5 g/dL (12.0-16.0) L 03/05/21 Hematocrit 33.1 % (37-47) L 03/05/21 Mean Corpuscular Volume 81.5 fL (80-100) 10/15/20 Platelet Count 225 K/uL (130-400) 10/15/20 Rubella IgG Antibody Immune (Immune) 10/15/20 Rapid Plasma Reagin Nonreactive (Nonreactive) 10/15/20 Hepatitis B Surface Antigen Neg (Neg) 10/15/20 HIV (1&2) Ab and P24 Ag, 4th Gener Neg (Neg) 10/15/20 Glucose 1 Hour 50 gm Load 113 mg/dl (70-130) 03/05/21 OB Optional Labs: Chlamydia trachomatis RNA NOT DETECTED (NOT DETECTED) 05/01/21 Neisseria gonorrhoeae RNA NOT DETECTED (NOT DETECTED) 05/01/21 Thyroid Stimulating Hormone (TSH) 1.760 uIu/ml (0.300-4.500) 11/13/20 Labs Reviewed: (-) CF/SMA 2019 low risk panorama gbs neg Allergies Allergy/AdvReac Type Severity Reaction Status Date / Time nickel Allergy Mild redness/swelling Verified 05/19/21 14:31 with nickel jewelry Home Medications Medication Instructions Recorded Confirmed Type ferrous sulfate 325 mg (65 mg 325 mg PO HS 03/09/21 05/20/21 History iron) tablet sertraline 50 mg tablet 50 mg PO DAILY #30 tab 04/13/21 05/19/21 Rx lansoprazole 15 mg capsule,delayed 15 mg PO HS 05/19/21 05/20/21 History release vit no.133-ferrous 1 tab PO HS 05/19/21 05/20/21 History fumarate 28 mg-folic acid 800 mcg tablet () Patient History Medical History ADD (attention deficit disorder) no meds Allergic conjunctivitis Anti-TPO antibodies present Anxiety and depression will be starting zoloft after Cervical lymphadenopathy Chronic lymphocytic thyroiditis currently no meds Graves disease currently no meds Morbid obesity PID (acute pelvic inflammatory disease) Splenomegaly (08/20/12) Surgical History S/P tonsillectomy and adenoidectomy S/P wisdom tooth extraction Family History Father Allergic rhinitis Mother Multiple gestation Premature labor FHx: kidney cancer Allergic rhinitis Hypertension Asthma Grandmother (Paternal) Breast cancer Grandmother Breast cancer Sister Diabetes Hypercholesteremia Other ADHD (attention deficit hyperactivity disorder) No family history of adverse response to anesthesia Denies family history of Ovarian cancer Prostate cancer Myocardial infarction Colorectal cancer Social History Smoking Status: Former smoker Tobacco Type: Cigarettes Age Started Using Tobacco: 16; Age Quit Using Tobacco: 18; packs per day: 1; Years Smoked: 2; Smoking End Date: quit over 1 yr ago; Number of Years Since Quit: 0; Second Hand Exposure: No; Do You Dip or Chew Tobacco: No; Tobacco Cessation Education Requested by Patient: No Hx Alcohol Use: No Hx Substance Use: No Preferred Language: Scottish Communication Ability: Effective Visual Impairment: No Limitations Hearing Ability: Normal Lead Printer Required: No Beliefs That Will Affect Care: None marital status: marital status details: ANTONIA Valiente (25) [phone] Current Living Situation: Spouse Current Living Situation Comment: Lives with , daughter and step daughter. 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 @ [employer] How many Children do You have: 1 Other Information That Helps Us Care for You: No Feels Safe at Home: Yes Safety Concerns: Feels Safe At This Time Childhood Exposure to Second-Hand Smoke: No caffeine: Yes Dental Care, Regularly: Yes Physical Activity Frequency: Daily Seatbelt Use: always Sunscreen Use: Yes Assistive Devices: None Physical Exam Constitutional: WD/WN, vitals as above Neck: trachea midline, no thyromegaly Respiratory: normal respiratory effort, lungs clear to auscultation Cardiovascular: RRR, no murmur, no edema Gastrointestinal (Abdomen): obese , soft, nt, gravid Psychiatric: A+Ox3, euthymic affect Results & Data ([facility]) Vital Signs (Past 12 Hours) Vital Signs Temp Pulse Pulse Resp BP BP Pulse Ox 05/20/21 09:49 105 H 100 05/20/21 09:44 99 H 97 05/20/21 09:40 111 H 91 05/20/21 09:39 105 H 99 05/20/21 09:34 95 H 99 05/20/21 09:29 100 H 98 05/20/21 09:24 104 H 99 05/20/21 09:19 91 H 99 05/20/21 08:18 36.4 C L 98 H 18 129/61 05/20/21 08:12 36.4 C L 98 H 18 129/61 05/20/21 07:43 98 H 129/61 Coding Level of Care Code None Diagnoses Morbid obesity E66.01 39 weeks gestation of Z3A.39 Large for gestational age fetus affecting management of mother, antepartum O36.60X0
[2021-05-20] MEDS ORDERED: SERTRALINE HCL 50 MG TABLET PO PRN (11:21)
[2021-05-20] MEDS: KETOROLAC 30 MG/ML VIAL IV PRN ×2 (11:27→20:22)
--- NOTE | 2021-05-20 11:27 | Operative Report ---
PG Post Operative Report Pre & Post Diagnosis Operation Date: 05/20/21 08:30 preop-- at 39 4/7 weeks LGA postop --same <No data on this case meets the specified criteria> I identified the patient and participated in the time-out.: Yes Procedure Operation Date: 05/20/21 08:30 primarly low transverse <No data on this case meets the specified criteria> Surgeon Yajaira Cortes MD, FACOG Topographic Computator Dr. Juarez, PGY-1 Estimated Blood Loss 600 Findings Consistent with Post-Op Diagnosis viable female infant, cephalic, loose nuchal cord x 1, apgars 9/9 Fluids 1000cc, uop--500cc Specimens placenta, cord gasses Drains gan Anesthesia Type General Complications none Disposition Accompanied Patient To Recovery: No Disposition: L&D Indications Patient is a 20yowf with lga . Description of Procedure The patient was taken to the operating room where she was identified verbally and by bracelet. She was seated on the operating table where a spinal anesthetic was placed by anesthesia. She was then placed in the supine position with a leftward tilt. A Gan catheter was placed sterilely. the patient was prepped and draped in a normal standard fashion. the anesthetic was tested and found to be adequate. A time-out was held, identifying correct patient, procedure, positioning and preoperative antibiotics. There were no concerns. A Pfannenstiel skin incision was made with a knife and taken down to the underlying layer of fascia with the knife and Bovie electrocautery. Bleeding was attended to with the Bovie. The fascia was incised in the midline with the knife and taken out laterally with scissors. The superior edge of the fascial incision was grasped, elevated and the underlying layer of rectus muscle was taken off bluntly and with scissors. In a similar fashion, the inferior edge of the fascial incision was grasped, elevated and the underlying layer of rectus muscle was taken off bluntly and with scissors. The muscles were bluntly in the midline. The peritoneum was entered bluntly. The incision was then stretched. The bladder blade was placed. The vesicouterine peritoneum was identified, entered with scissors and taken out laterally with scissors. The bladder flap was created digitally A hysterotomy incision was scored with a knife and the incision was stretched superiorly and inferiorly with the telephone operator receptionist's fingers. The operators hand was placed into the incision and lifted the head. Had a difficult time delivering and so a vacuum was called for. Vacuum placed and popped off x 2 and then on the third application, the head was delivered. A loose nuchal cord x1 reduced. The nose and mouth were bulb suctioned. the rest of the infant was then delivered without difficulty. The nose and mouth were again bulb suctioned. The cord was clamped and cut and the was then handed off to the awaiting supply chain planner for drying and attention. Cord blood and segment were obtained. The placenta was Manually extracted. The uterus was exteriorized and cleared of all clot and debris with moistened laparotomy sponges. The hysterotomy incision was repaired in two layers, the first in a running locked layer, the second in an imbricating layer. Two figure of 8 sutures placed for hemostasis. Hemostasis was noted to be good. Posterior cul-de-sac was irrigated and cleared of all clot and debris. The hysterotomy incision was again inspected and found to be hemostatic. the uterus was reinteriorized. Hysterotomy incision was again inspected and one suture needed at the left corner. Hemostasis was then assured. Rectus muscles were reapproximated with several interrupted stitches of 0 Vicryl. The fascia was then reapproximated with 0 Vicryl starting at the edges and meeting in the midline. The subcuticular tissues were copiously irrigated and bleeding was attended to with cautery. The skin was then closed with 4-0 Vicryl in a subcuticular fashion. All sponge, lap and needle counts were correct x 2. The patient tolerated the procedure well and was taken to the recovery room in stable condition. I attest to the content of the Intraoperative Record and any orders documented therein. Any exceptions are noted below.
--- NOTE | 2021-05-20 12:14 | Anesthesiology Progress Note ---
Date of Service May 20, 2021 Anesthesia Post Procedure Vital Signs Vital Signs: Temp Pulse Pulse Resp BP BP Pulse Ox 05/20/21 12:12 71 126/57 L 05/20/21 12:08 82 96 05/20/21 12:07 86 118/57 L 05/20/21 12:03 81 97 05/20/21 12:02 127 H 115/55 L 05/20/21 11:58 65 112/56 L 98 05/20/21 11:53 67 97 05/20/21 11:48 77 98 05/20/21 11:47 60 105/51 L 05/20/21 11:43 76 112/56 L 97 05/20/21 11:38 76 99 05/20/21 11:37 78 113/57 L 05/20/21 11:33 78 105/73 98 05/20/21 11:28 82 99/62 L 98 05/20/21 11:23 74 98 05/20/21 11:22 77 102/60 05/20/21 11:18 74 98 05/20/21 11:17 83 103/61 05/20/21 11:08 74 102/57 L 05/20/21 09:49 105 H 100 05/20/21 09:44 99 H 97 05/20/21 09:40 111 H 91 05/20/21 09:39 105 H 99 05/20/21 09:34 95 H 99 05/20/21 09:29 100 H 98 05/20/21 09:24 104 H 99 05/20/21 09:19 91 H 99 05/20/21 08:18 36.4 C L 98 H 18 129/61 05/20/21 08:12 36.4 C L 98 H 18 129/61 05/20/21 07:43 98 H 129/61 Pain Intensity Lower Medial Abdomen: Pain Intensity: 2 Transfer of Care Handoff Completed per policy Notes Mental Status: alert / awake / arousable Patient Amnestic to Procedure: Yes Nausea / Vomiting: adequately controlled Pain: adequately controlled Airway Patency, RR, SpO2: stable & adequate BP & HR: stable & adequate Hydration State: stable & adequate Neuraxial Anesthesia: was administered and sensory block is resolving Anesthetic Complications: no major complications apparent and Pt Satisfied with anesthetic care
--- NOTE | 2021-05-20 12:15 | Anesthesia Procedure Note ---
Date of Service May 20, 2021 Anesthesia Post Epidural Note Vital Signs Vital Signs: Temp Pulse Resp BP Pulse Ox 36.4 C L 64 18 126/57 L 98 05/20/21 08:18 05/20/21 12:13 05/20/21 08:18 05/20/21 12:12 05/20/21 12:13 Pain Intensity Lower Medial Abdomen: Pain Intensity: 2 Notes Mental Status: alert / awake / arousable and participated in evaluation Nausea / Vomiting: adequately controlled Pain: adequately controlled Airway Patency, RR, SpO2: stable & adequate BP & HR: stable & adequate Hydration State: stable & adequate Neuraxial Anesthesia: was administered and sensory block is resolving Anesthetic Complications: no major complications apparent and Pt Satisfied with anesthetic care Epidural: Removed without complications and With tip intact
[2021-05-20] MEDS: OXYTOCIN 20 UNITS in LACTATED RINGER'S 1,000 ML IV SCH ×2 (14:15→21:45)
[2021-05-20] MEDS ORDERED: SODIUM CHLORIDE 0.9% 250 ML IV PRN (15:15)
[2021-05-20] MEDS: SIMETHICONE 80 MG CHEW PO SCH ×2 (18:42→20:22)
[2021-05-20] MEDS: DOCUSATE SODIUM 100 MG CAP PO SCH (20:22)
[2021-05-21] MEDS: KETOROLAC 30 MG/ML VIAL IV PRN (01:54)
[2021-05-21] MEDS ORDERED: diphenhydrAMINE 50 MG/ML VIAL IV PRN (03:12)
[2021-05-21] MEDS ORDERED: ONDANSETRON INJ 2 MG/ML 2 ML VIAL IV PRN (03:12)
[2021-05-21] MEDS ORDERED: PROMETHAZINE HCL 25 MG in SODIUM CHLORIDE 0.9% 50 ML IV PRN (03:12)
[2021-05-21] MEDS ORDERED: diphenhydrAMINE Capsule 25 MG CAP PO PRN (03:12)
[2021-05-21] MEDS: IBUPROFEN 600 MG TAB PO PRN ×4 (06:45→20:20)
[2021-05-21] MEDS: oxyCODONE/ACETAMINOPHEN 5mg/325mg TAB PO PRN ×4 (06:45→22:29)
[2021-05-21 06:56] LABS: Hemoglobin 8.3 g/dL (12.0-16.0); Mean Corpuscular Hemoglobin 23.1 pg (25-34); Mean Corpuscular Hgb Conc 30.7 g/dL (32-36); Mean Platelet Volume 10.9 fL (7.4-10.4); Platelet Count 171 K/uL (130-400); RDW Coefficient of Variation 16.5 % (11.5-14.5); RDW Standard Deviation 45.2 fL (36.4-46.3); White Blood Count 11.52 K/uL (4.8-10.8)
[2021-05-21 07:26] LABS: Basophils # (auto) 0.02 K/uL (0-0.2); Basophils % (auto) 0.2 %; Eosinophils # (auto) 0.16 K/uL (0-0.5); Eosinophils % (auto) 1.4 %; Immature Granulocytes # (auto) 0.03 K/uL (0.00-0.02); Immature Granulocytes % (auto) 0.3 %; Lymphocytes # (auto) 1.78 K/uL (1.2-3.4); Lymphocytes % (auto) 15.5 %; Monocytes # (auto) 0.62 K/uL (0.11-0.59); Monocytes % (auto) 5.4 %; Neutrophils # (auto) 8.91 K/uL (1.4-6.5); Neutrophils % (auto) 77.2 %; Polychromasia 1+
--- NOTE | 2021-05-21 07:28 | Obstetrical Progress Note ---
Date of Service <Ton Juarez MD - Last Filed: 05/21/21 07:28> May 21, 2021 Assessment & Plan <Ton Juarez MD - Last Filed: 05/21/21 07:28> (1) Encounter for care and examination after delivery: POD 1: stable, routine postoperative management * patient voiding, ambulating without difficulty * pain well controlled on analgesia * tolerating regular diet * breast feeding * observe on L&D floor today-reassess d/c readiness tomorrow <Yajaira Cortes MD, FACOG - Last Filed: 05/21/21 07:31> (1) Encounter for care and examination after delivery: Subjective <Ton Juarez MD - Last Filed: 05/21/21 07:28> Post Laverne is a 20 y/o female who is POD 1 following at 39.4 WGA. She reports feeling well overall this morning. 6/10 cramping pain well managed on analgesics. Voiding well. Tolerating meals overnight and able to ambulate without assistance or dizziness. + passing gas. Lochia is a bout the same this morning. Currently breast feeding. Review of Systems Denies fever, chills, sweats Denies shortness of breath, difficulty breathing, chest pain, palpitations, chest pressure. Denies breast pain. Denies dysuria. Denies headache or changes in vision. Physical Exam <Ton Juarez MD - Last Filed: 05/21/21 07:28> General: Alert, oriented. No acute distress. Cardiac: Regular rate and rhythm, no murmurs/rubs/gallops. Respiratory: Clear to auscultation bilaterally a/p, no wheezes/rales/rhonchi. No increased work of breathing. Symmetrical chest rise. No respiratory distress. Abdomen: Soft, nontender, nondistended. Bowel sounds present. Uterus: Uterine fundus firm, palpable 1 cm below umbilicus. Surgical scar clean and healing well. Lower Extremities: No lower extremity edema or swelling. No deep calf pain. Glenn's negative bilaterally. Results & Data ([facility]) <Ton Juarez MD - Last Filed: 05/21/21 07:28> Vital Signs (Past 12 Hours) Vital Signs Temp Pulse Resp BP Pulse Ox 05/21/21 03:30 36.9 C 87 20 111/73 97 05/21/21 02:30 20 97 05/21/21 01:30 20 98 05/21/21 00:30 18 97 05/21/21 00:05 36.8 C 85 20 106/68 97 05/20/21 23:30 20 98 05/20/21 22:30 18 98 05/20/21 21:30 18 98 05/20/21 20:30 20 97 05/20/21 20:15 36.9 C 90 20 113/68 97 05/20/21 19:30 20 98 <Yajaira Cortes MD, FACOG - Last Filed: 05/21/21 07:31> Co-Signing Physician Notes Resident Physician Supervision Note: I interviewed and examined the patient. Discussed with Dr. Juarez and agree with findings and plan as documented in the note. Any exceptions or clarifications are listed here: Doing well. Continue routine ppd 1. Incision c/d/i. Documented By: Yajaira Cortes MD, FACOG Resident Activity Tracking <Ton Juarez MD - Last Filed: 05/21/21 07:28> Resident Involvement: Resident Care Provided Care Provided: Adult Hospital Medicine
[2021-05-21] MEDS: DOCUSATE SODIUM 100 MG CAP PO SCH ×2 (07:45→20:18)
[2021-05-21] MEDS: FERROUS SULFATE 325 MG TAB PO SCH (07:45)
[2021-05-21] MEDS: SIMETHICONE 80 MG CHEW PO SCH ×4 (07:46→20:18)
[2021-05-21] MEDS: PRENATAL VITAMIN 1 TAB PO SCH (07:46)
[2021-05-21] MEDS ORDERED: bisacodyL 5 MG TABEC PO SCH (20:00)
[2021-05-22] MEDS: IBUPROFEN 600 MG TAB PO PRN ×2 (06:05→12:04)
[2021-05-22] MEDS: oxyCODONE/ACETAMINOPHEN 5mg/325mg TAB PO PRN ×2 (06:06→12:04)
[2021-05-22 06:43] LABS: Hematocrit (blood only) 26.9 % (37-47); Hemoglobin 8.2 g/dL (12.0-16.0)
--- NOTE | 2021-05-22 07:27 | Obstetrical Progress Note ---
Date of Service <Ton Juarez MD - Last Filed: 05/22/21 07:27> May 22, 2021 Assessment & Plan <Ton Juarez MD - Last Filed: 05/22/21 07:27> (1) Encounter for care and examination after delivery: POD 2: stable, routine postoperative management * patient voiding, ambulating without difficulty * pain well controlled on analgesia: short [facility] * tolerating regular diet * breast feeding * d/c today * 6-wk outpatient OB follow-up <Mya Meredith DO - Last Filed: 05/22/21 07:37> (1) Encounter for care and examination after delivery: Subjective <Ton Juarze MD - Last Filed: 05/22/21 07:27> Post Laverne is a 20 y/o female who is POD #2 following at 39.4 WGA. She reports feeling well overall this morning. Some cramping and incisional tension pain well managed on analgesics. Voiding well. Tolerating meals overnight and able to ambulate on her own. + passing gas. Lochia much improved this morning. Currently . Review of Systems Denies fever, chills, sweats Denies shortness of breath, difficulty breathing, chest pain, palpitations, chest pressure. Denies breast pain. Denies dysuria. Denies headache or changes in vision. Physical Exam <Ton Juarez MD - Last Filed: 05/22/21 07:27> General: Alert, oriented. No acute distress. Cardiac: Regular rate and rhythm, no murmurs/rubs/gallops. Respiratory: Clear to auscultation bilaterally a/p, no wheezes/rales/rhonchi. No increased work of breathing. Symmetrical chest rise. No respiratory distress. Abdomen: Soft, nontender, nondistended. Bowel sounds present. Uterus: Uterine fundus firm, palpable at the umbilicus. Surgical scar clean and healing well. Lower Extremities: No lower extremity edema or swelling. No deep calf pain. Glenn's negative bilaterally. Results & Data ([facility]) <Ton Juarez MD - Last Filed: 05/22/21 07:27> Vital Signs (Past 12 Hours) Vital Signs Temp Pulse Resp BP Pulse Ox 05/21/21 23:24 36.8 C 80 20 134/78 05/21/21 20:00 36.6 C 86 18 129/75 98 <Mya Meredith DO - Last Filed: 05/22/21 07:37> Co-Signing Physician Notes Resident Physician Supervision Note: I was present with Dr. Juarez during the history and exam. I discussed the case with the resident and agree with the findings and plan as documented in the note. Any exceptions or clarifications are listed here: POD#2 doing well, desires DC home. Rx percocet #20 sent to pharmacy on file. Instructions reviewed. Documented By: Mya Meredith DO Resident Activity Tracking <Ton Juarez MD - Last Filed: 05/22/21 07:27> Resident Involvement: Resident Care Provided Care Provided: OB Delivery
[2021-05-22] MEDS: PRENATAL VITAMIN 1 TAB PO SCH (08:06)
[2021-05-22] MEDS: DOCUSATE SODIUM 100 MG CAP PO SCH (08:06)
[2021-05-22] MEDS: FERROUS SULFATE 325 MG TAB PO SCH (08:06)
[2021-05-22] MEDS: SIMETHICONE 80 MG CHEW PO SCH ×2 (08:07→12:04)
[2021-05-22] MEDS ORDERED: bisacodyL 10 MG SUPP PR PRN (10:54)
--- NOTE | 2021-05-26 02:53 | Discharge Summary (DS) ---
DATE OF ADMISSION: 05/20/2021. DATE OF DISCHARGE: 05/22/2021. ADMISSION DIAGNOSES: 1. Intrauterine at 39 and 4/7 weeks. 2. Large for gestational age fetus. DISCHARGE DIAGNOSES: 1. Intrauterine at 39 and 4/7 weeks. 2. Large for gestational age fetus. PROCEDURE: Primary low transverse section. HISTORY: The patient is a 20-year-old white female, 2, para 1-0-0-1, with an intrauterine pr egnancy at 39 and 4/7 weeks who presents to labor and delivery today for elective . The pat ient was in the office yesterday and had an ultrasound because she was measuring large. Ultrasound s howed a head circumference off the chart and abdominal circumference 96th percentile, estimated weight 95th percentile, which corresponded to 4228 grams with 9 pounds 5 ounces, plus or minus 22 ou nces. The patient has a previous history of a vaginal delivery of an 8 pound 4 ounce baby after a 4- hour push and vacuum assist. We discussed the situation in detail. Discussed that we should either attempt induction tomorrow or consider primary for concern of size. Discussed could have failure to progress or descend given the large head. Discussed the possibility of shoulder dyst ocia. Discussed that last time it took her 4 hours to push out an 8 pound 4 ounce baby and needed va cuum assist. We discussed that we would not attempt any vacuum or forceps for this delivery. Discus sed she would have to push it out herself. Discussed what the implications of the shoulder dystocia m ight entail, discussed the other option would be primary . Discussed the risks associated w ith , including bleeding, transfusion, infection, poor wound healing, implications for next , injury to other organs, requiring further surgery. After a long discussion and answering questions, she has decided to proceed with primary section. For the rest of the patient's de tailed history and physical, please see her dictated history and physical. ASSESSMENT: This is a at 39 and 4/7 weeks with large for gestational age with concerns of size and inability to fit out the pelvis. The patient has elected primary section. HOSPITAL COURSE: The patient underwent a primary low transverse section without difficulty, to deliver a viable female infant in cephalic presentation with a loose nuchal cord x1, Apgars were 9 and 9, weight was 9 pounds 2 ounces. Estimated blood loss was 600 mL. The patient's postoperative course was uncomplicated. She tolerated regular diet, voided after the removal of her Scruggs catheter , ambulated without difficulty, had her pain controlled on oral analgesia. She was discharged home o n postoperative day #2. Her discharge H and H was 8.2 and 26.9. She started on the day of admission with a hemoglobin of 9.7 and 31.0. She will call if she has any issues. Job ID: [id number]
== END 2021-05-22 12:30 | disposition home or self-care (01) | DRG 788 ==
LOC: 4S1 07:06 → EDSTATUS 09:05 → 4S2 17:08 → 4E2 05-22 09:20